=== PATIENT | female | born 1975 ===

== ENCOUNTER 2021-04-15 11:17 | Outpatient (REF) | payer OTHER, SELFPAY ==
[2021-04-15 13:04] LABS: Erythrocyte Sedimentation Rate 18 MM/HR (0-20)
[2021-04-17 21:02] LABS: Lyme Abs Screen <0.90 index
[2021-04-19 13:21] LABS: Anti Nuclear Antibody Screen NEGATIVE (NEGATIVE)
== END 2021-04-15 11:18 | disposition home or self-care (01) ==
LOC: HO.LAB 11:17
PROVIDERS: PCP Internal Medicine; Visit Provider Psychiatry & Neurology Neurology
DX: G43.909 Migraine, unspecified, not intractable, without status migrainosus (principal); D86.0 Sarcoidosis of lung
CPT/HCPCS: 36415; 85652; 86038; 86039; 86617; 86618

== ENCOUNTER 2021-08-09 16:34 | Outpatient (REF) | payer OTHER, SELFPAY ==
[2021-08-09 18:17] LABS: Erythrocyte Sedimentation Rate 17 MM/HR (0-20)
[2021-08-11 09:02] LABS: Lyme Abs Screen <0.90 index
[2021-08-11 15:03] LABS: Anti Nuclear Antibody Screen NEGATIVE (NEGATIVE)
== END 2021-08-09 16:35 | disposition home or self-care (01) ==
LOC: HO.LAB 16:34
PROVIDERS: PCP Internal Medicine; Visit Provider Psychiatry & Neurology Neurology
DX: G43.909 Migraine, unspecified, not intractable, without status migrainosus (principal)
CPT/HCPCS: 36415; 82550; 85652; 86038; 86039; 86617; 86618